=== PATIENT | male | born 1965 | race Caucasian/White ===

== ENCOUNTER 2017-11-11 17:11 | Emergency (ER) | payer MEDICAID ==
[~2017-11-11] VITALS: Ht 165.1 cm; Wt 79.0 kg
[~2017-11-11 17:11] MED LIST: ACET-2178 PO; GABA-531 PO; INSU1INS; METF500T6 PO; METO-293 PO
[2017-11-11] MEDS ORDERED: DEXTROSE 50% WATER 50ML SYRINGE IV ONE ×2 (17:15→17:22)
[2017-11-11] MEDS ORDERED: DEXAMETHASONE 4MG/ML 1ML VIAL ONE (17:22)
[2017-11-11 17:49] VITALS: BP 99/67
== END 2017-11-11 19:45 | disposition left against medical advice (07) ==
LOC: ER 17:11
DX: E11.649 Type 2 diabetes mellitus with hypoglycemia without coma (principal); Z79.4 Long term (current) use of insulin; I25.10 Atherosclerotic heart disease of native coronary artery without angina pectoris; Z98.61 Coronary angioplasty status; Z95.1 Presence of aortocoronary bypass graft; Z79.899 Other long term (current) drug therapy
CPT/HCPCS: 82962; 99282; J1100

== ENCOUNTER 2018-02-26 06:02 | Inpatient (IN) | payer MEDICAID ==
[~2018-02-26] VITALS: Ht 121.9 cm; Wt 67.6 kg
[~2018-02-26 06:02] MED LIST changes: +METF-414 PO; -METF500T6 PO
[2018-02-26] MEDS ORDERED: DEXTROSE 50% WATER 50ML SYRINGE IV ONE (06:45)
[2018-02-26 07:13] LABS: BASOPHILS % 0.8 % (0.0-2.0); EOSINOPHILS % 4.1 % (0.0-5.0); HEMATOCRIT. 31.8 % (42.0-52.0); HEMOGLOBIN. 10.2 g/dL (14.0-18.0); LYMPHOCYTES % 20.5 % (20.0-50.0); MEAN CORPUSCULAR VOLUME 93.8 fL (80.0-94.0); MEAN PLATELET VOLUME 9.3 fl (7.4-10.4); MONOCYTES % 3.6 % (2.0-8.0); PLATELET 336 x1000/uL (130-400); RED BLOOD CELL COUNT 3.39 mill/uL (4.7-6.1); RED CELL DISTRIBUTION WIDTH 14.8 % (11.6-14.6)
[2018-02-26 07:26] LABS: CHLORIDE 113 mEq/L (98-107)
[2018-02-26] MEDS ORDERED: SODIUM BICARBONATE 8.4% 1 MEQ/ML 50ML SYR IV ONE (07:30)
[2018-02-26] MEDS ORDERED: FUROSEMIDE 100MG/10ML VIAL IV ONE (07:30)
[2018-02-26] MEDS ORDERED: CALCIUM GLUCONATE 1,000 MG in DEXT 5% WATER 100 ML IV ONE (07:45)
[2018-02-26] MEDS: ALBUTEROL (0.083%) 2.5MG/3ML NEB HHN SCH ×3 (07:51→09:20)
[2018-02-26] MEDS ORDERED: SODIUM CHLORIDE 0.9% 1,000 ML IV ONE (08:39)
[2018-02-26 09:45] VITALS: BP 91/64
[2018-02-26] MEDS ORDERED: OMEP20CA10 MT (10:59)
[2018-02-26] MEDS ORDERED: LISI10TA5 MT (10:59)
[2018-02-26] MEDS ORDERED: FURO40TA5 MT (10:59)
[2018-02-26] MEDS ORDERED: ASPI-1158 MT (10:59)
[2018-02-26] MEDS ORDERED: AMLO10TA80 MT (10:59)
[2018-02-26] MEDS ORDERED: HYDR-4134 MT (10:59)
[2018-02-26] MEDS ORDERED: GLIP5TAB12 MT (10:59)
[2018-02-26] MEDS ORDERED: CARV12.545 MT (10:59)
[2018-02-26] MEDS ORDERED: ATOR-2 MT (10:59)
[2018-02-26 11:30] VITALS: BP 91/64
[2018-02-26 12:00] VITALS: BP 120/43
[2018-02-26] MEDS ORDERED: DEXT 5%/0.45% NACL 1000ML 1,000 ML IV SCH (12:22)
[2018-02-26] MEDS ORDERED: ACETAMINOPHEN 325MG TABLET PO PRN (12:30)
[2018-02-26] MEDS ORDERED: ONDANSETRON HCL 4MG/2ML INJ IV PRN (12:30)
[2018-02-26] MEDS ORDERED: HYDROCODONE/ACETAMINOPHEN 5/325MG TABLET PO PRN (12:30)
[2018-02-26] MEDS ORDERED: SODIUM POLYSTYRENE SULFONATE 15 G/60 ML BOT PO NR (12:30)
[2018-02-26] MEDS ORDERED: DOCUSATE SODIUM 100MG CAPSULE PO PRN (12:30)
[2018-02-26 13:09] LABS: BG BASE EXCESS -8.4 mmol/L (-2.0-2.0); BG CARBOXYHEMOGLOBIN 0.3 % (0.5-1.5); BG DEOXYHEMOGLOBIN 4.1 % (0.0-5.0); BG HCO3 ACT 15.9 mmol/L (22.0-26.0); BG METHEMOGLOBIN 0.4 % (0.0-1.5); BG OXYGEN SATURATION 95.9 % (92.0-98.5); BG OXYHEMOGLOBIN 95.2 % (94.0-97.0); BG PCO2 28.4 mmHg (35.0-45.0); BG PH 7.365 (7.350-7.450); BG PO2 79.6 mmHg (75.0-100.0); BG SAMPLE SITE RIGHT BRACHIAL; BG TOTAL HEMOGLOBIN 9.4 g/dL (12.0-18.0); BG VENT MODE ROOM AIR
[2018-02-26] MEDS: AMLODIPINE 10MG TABLET PO SCH (14:00)
[2018-02-26] MEDS ORDERED: LIDOCAINE HCL 1% 20ML VIAL (Pyxis) INJ ONE (14:12)
[2018-02-26] MEDS ORDERED: SODIUM BICARBONATE 4% (2.4MEQ) 5ML VIAL IV ONE (14:12)
[2018-02-26 14:15] LABS: PARTIAL THROMBOPLASTIN TIME 26.6 sec (23.4-31.0); PROTHROMBIN TIME 10.3 sec (9.1-11.1)
[2018-02-26 16:00] VITALS: BP 152/54
[2018-02-26] MEDS ORDERED: DEXTROSE 50% WATER 50ML SYRINGE IV PRN (16:15)
[2018-02-26] MEDS: INSULIN LISPRO 100 UNITS/ML SUBCUT SCH ×2 (18:10→21:45)
[2018-02-26] MEDS: BLOOD SUGAR DIAGNOSTIC STRIP TEST SCH ×2 (18:23→21:00)
[2018-02-26 20:00] VITALS: BP 165/75
[2018-02-26 20:30] VITALS: BP 144/68
[2018-02-27] VITALS (7 sets, daily range): BP systolic 124–168; BP diastolic 48–76
[2018-02-27 07:31] LABS: BASOPHILS % 1.1 % (0.0-2.0); EOSINOPHILS % 3.1 % (0.0-5.0); HEMATOCRIT. 27.3 % (42.0-52.0); HEMOGLOBIN. 9.2 g/dL (14.0-18.0); LYMPHOCYTES % 16.9 % (20.0-50.0); MEAN CORPUSCULAR HEMOGLOBIN 30.5 pg (28.0-32.0); MEAN CORPUSCULAR VOLUME 90.8 fL (80.0-94.0); MEAN PLATELET VOLUME 9.9 fl (7.4-10.4); MONOCYTES % 7.5 % (2.0-8.0); NEUTROPHILS % 71.4 % (40.0-76.0); PLATELET 230 x1000/uL (130-400)
[2018-02-27] MEDS: BLOOD SUGAR DIAGNOSTIC STRIP TEST SCH ×4 (07:40→21:16)
[2018-02-27 07:50] LABS: CHLORIDE 109 mEq/L (98-107)
[2018-02-27] MEDS: INSULIN LISPRO 100 UNITS/ML SUBCUT SCH ×4 (08:10→21:16)
[2018-02-27] MEDS: AMLODIPINE 10MG TABLET PO SCH (10:16)
[2018-02-27] MEDS: CLONIDINE 0.1MG TABLET PO PRN (10:16)
[2018-02-28] VITALS: BP 136/58
[2018-02-28 04:00] VITALS: BP 124/61
[2018-02-28] MEDS: BLOOD SUGAR DIAGNOSTIC STRIP TEST SCH ×4 (06:00→21:49)
[2018-02-28 08:00] VITALS: BP 143/53
[2018-02-28] MEDS: INSULIN LISPRO 100 UNITS/ML SUBCUT SCH ×4 (08:45→21:51)
[2018-02-28] MEDS: AMLODIPINE 10MG TABLET PO SCH (09:16)
[2018-02-28 12:00] VITALS: BP 114/81
[2018-02-28 16:00] VITALS: BP 139/69
[2018-02-28 16:11] LABS: BASOPHILS % 1.2 % (0.0-2.0); EOSINOPHILS % 5.3 % (0.0-5.0); HEMOGLOBIN. 8.4 g/dL (14.0-18.0); LYMPHOCYTES % 21.3 % (20.0-50.0); MEAN CORPUSCULAR HEMOGLOBIN 30.3 pg (28.0-32.0); MEAN CORPUSCULAR VOLUME 90.3 fL (80.0-94.0); MEAN PLATELET VOLUME 9.7 fl (7.4-10.4); MONOCYTES % 8.6 % (2.0-8.0); NEUTROPHILS % 63.6 % (40.0-76.0); PLATELET 212 x1000/uL (130-400); RED BLOOD CELL COUNT 2.77 mill/uL (4.7-6.1); RED CELL DISTRIBUTION WIDTH 14.6 % (11.6-14.6)
[2018-02-28 20:17] VITALS: BP 142/67
[2018-03-01] VITALS: BP 133/94
[2018-03-01 04:00] VITALS: BP 155/57
[2018-03-01] MEDS: BLOOD SUGAR DIAGNOSTIC STRIP TEST SCH ×2 (07:40→12:40)
[2018-03-01 08:00] VITALS: BP 169/59
[2018-03-01] MEDS: CLONIDINE 0.1MG TABLET PO PRN (09:08)
[2018-03-01] MEDS: AMLODIPINE 10MG TABLET PO SCH (09:08)
[2018-03-01] MEDS: INSULIN LISPRO 100 UNITS/ML SUBCUT SCH ×2 (09:12→13:10)
[2018-03-01 15:50] VITALS: BP 148/70
== END 2018-03-01 16:32 | disposition home or self-care (01) | DRG 420 ==
LOC: ER 06:02 → 7WST 08:04 → EDBEDREQ 08:14 → ENRESERV 08:56
PROVIDERS: ADMIT Hospitalist; ATTEND Hospitalist
PROC: 02HV33Z Insertion of Infusion Device into Superior Vena Cava, Percutaneous Approach (ICD-10-PCS; principal; 2018-02-26)
PROC: 5A1D70Z Performance of Urinary Filtration, Intermittent, Less than 6 Hours Per Day (ICD-10-PCS; 2018-02-26)
PROC: B5181ZA Fluoroscopy of Superior Vena Cava using Low Osmolar Contrast, Guidance (ICD-10-PCS; 2018-02-26)
PROC: B548ZZA Ultrasonography of Superior Vena Cava, Guidance (ICD-10-PCS; 2018-02-26)
DX: E11.649 Type 2 diabetes mellitus with hypoglycemia without coma (principal); N17.0 Acute kidney failure with tubular necrosis; E87.2 Acidosis; E11.22 Type 2 diabetes mellitus with diabetic chronic kidney disease; E11.51 Type 2 diabetes mellitus with diabetic peripheral angiopathy without gangrene; E87.5 Hyperkalemia; E78.00 Pure hypercholesterolemia, unspecified; D64.9 Anemia, unspecified; I12.9 Hypertensive chronic kidney disease with stage 1 through stage 4 chronic kidney disease, or unspecified chronic kidney disease; N18.9 Chronic kidney disease, unspecified; E78.5 Hyperlipidemia, unspecified; I25.10 Atherosclerotic heart disease of native coronary artery without angina pectoris; I51.7 Cardiomegaly; Z89.511 Acquired absence of right leg below knee; Z89.512 Acquired absence of left leg below knee; Z95.1 Presence of aortocoronary bypass graft
CPT/HCPCS: 36415; 36556; 36600; 71045; 76937; 77001; 80048; 82375; 82805; 82962; 84132; 84484; 93005; 94640; 96374; 99285; C1752; J0610; J1642; J1815; J1940; J3490; J7030; J7060; J7611